=== PATIENT | female | born 1930 | race Two or more races ===

== ENCOUNTER 2020-10-13 09:30 | Inpatient (IN) | payer MEDICARE, OTHER ==
[~2020-10-13] VITALS: Ht 154.9 cm; Wt 55.3 kg
[~2020-10-13 09:30] MED LIST: ACET-2605 PO; ALEN70TA80 PO; ASPI-1169 PO; CHOL10002 PO; DONE5TAB34 PO; METF-881 PO; PRAV40TA3 PO; SERT50TA PO
--- NOTE | 2020-10-13 09:39 | NUR ---
PANDA BLUNT, UNWITNESSED FALL, FOUND IN THE FLOOR W/ BACK OF HEAD LACERATION. THE PATIENT DENIES PAIN. IN ROOM AIR AND DENIES SOB. RESPIRATION REGULAR AND UNLABORED. ATTACHED TO THE MONITOR. WARM BLANKET PROVIDED FOR COMFORT. WILL CONTINUE TO MONITOR THE PATIENT.
[2020-10-13] MEDS ORDERED: IV NS 0.9% 500 ML BAG IV ONE (10:00)
[2020-10-13 10:05] LABS: BASOPHILS # (AUTO) 0.1 /CMM (0.0-0.2); BASOPHILS % (AUTO) 0.6 % (0.0-2.0); EOSINOPHILS % (AUTO) 1.4 % (0.0-6.0); HEMATOCRIT 34 % (33-45); HEMOGLOBIN 11.2 g/dL (11.5-14.8); LYMPHOCYTES # (AUTO) 2.2 /CMM (0.8-4.8); LYMPHOCYTES % (AUTO) 20.8 % (20.0-44.0); MEAN CORPUSCULAR HGB CONC 33 g/dl (31.0-36.0); MEAN CORPUSCULAR VOLUME 93 fL (82-100); MONOCYTES # (AUTO) 0.8 /CMM (0.1-1.30); MONOCYTES % (AUTO) 7.9 % (2.0-12.0); NEUTROPHILS # (AUTO) 7.3 /CMM (1.8-8.9); NEUTROPHILS % (AUTO) 69.3 % (43.0-81.0); PLATELET COUNT (AUTO) 303 /CMM (150-450); RED BLOOD CELL COUNT(AUTO) 3.64 MIL/uL (4.0-5.2); WHITE BLOOD COUNT (AUTO) 10.5 K/uL (4.3-11.0)
--- NOTE | 2020-10-13 10:05 | NUR ---
iv line established, blood drawn and sent to lab.
[2020-10-13 10:13] LABS: CALCIUM, SERUM 9.4 mg/dL (8.5-10.1); CARBON DIOXIDE 23 mmol/L (21-32); CHLORIDE 106 mmol/L (98-107); CREATININE 1.2 mg/dL (0.6-1.3); GLUCOSE 176 mg/dL (74-106); POTASSIUM 4.2 mmol/L (3.5-5.1); SODIUM SERUM 142 mmol/L (136-145); UREA NITROGEN, BLOOD 16 mg/dL (7-18)
[2020-10-13 10:18] LABS: ALANINE AMINOTRANSFERASE 30 U/L (12-78); ALBUMIN 3.5 g/dL (3.4-5.0); ALKALINE PHOSPHATASE 66 U/L (46-116); ASPARTATE AMINOTRANSFERASE 19 U/L (15-37); BILIRUBIN,DIRECT 0.1 mg/dL (0.0-0.2); BILIRUBIN,TOTAL 0.3 mg/dL (0.2-1.0); LIPASE 28 U/L (73-393); TOTAL PROTEIN, SERUM 7.4 g/dL (6.4-8.2)
--- NOTE | 2020-10-13 10:19 | NUR ---
patient is in CT
--- NOTE | 2020-10-13 10:34 | NUR ---
urine collected and sent to the lab
[2020-10-13 10:40] LABS: BILIRUBIN,URINE Negative (NEGATIVE); COLOR,URINE YELLOW (YELLOW); LEUKOCYTE ESTERASE ,URINE Small (NEGATIVE); NITRITE, URINE Positive (NEGATIVE); PH,URINE 5.5 (5.0-8.0); PROTEIN,URINE Negative (NEGATIVE); UGLUCOSE Negative (NEGATIVE); UROBILINOGEN,URINE 0.2 EU/dL (0.2)
[2020-10-13 10:41] LABS: BACTERIA,URINE Few /HPF (None Seen); SQUAMOUS EPITHELIAL CELL,UR Few /HPF (None Seen)
[2020-10-13] MEDS ORDERED: CEFTRIAXONE 1GM BAG (ER ONLY) 1 GM/50 ML PIGGYBACK IV ONE (11:00)
--- NOTE | 2020-10-13 11:05 | NUR ---
covid swab done and sent to the lab
[2020-10-13] MEDS ORDERED: CYAN-24 PO (11:06)
[2020-10-13] MEDS ORDERED: METF-440 PO (11:06)
[2020-10-13] MEDS ORDERED: BENA20TA9 PO (11:06)
[2020-10-13] MEDS ORDERED: OMEP40CA21 PO (11:06)
[2020-10-13] MEDS ORDERED: CALC1TAB30 PO (11:06)
[2020-10-13] MEDS ORDERED: SITA50TA PO (11:06)
[2020-10-13] MEDS ORDERED: CEFTRIAXONE 1 G in IV D5W 50 ML IV ONE (11:30)
--- NOTE | 2020-10-13 11:44 | NUR ---
BED 105
--- NOTE | 2020-10-13 11:50 | NUR ---
Report given to nurse Greenfield
--- NOTE | 2020-10-13 13:41 | NUR ---
RN NOTES RECEIVED PATIENT ON [place] , IN BED RESTING, MADE NEEDS KNOWN SHE NEEDED TO USE THE BATH ROOM , STEAM BOX OPERATOR HELPED HER TO BATH ROOM, VOID 100ML YELLOW CLEAR NO FOUL ODOR NOTED, HELPED BACK TO BED, ALL SAFETY MEASURES INTACT BED LOW TO FLOOR AND CALL LIGHT IN POSITION, WILL CONTINUE TO MONITOR , ADMITTED FOR UNWITNESSED FALL AND LACERATION TO BACK OF HEAD
--- NOTE | 2020-10-13 18:07 | NUR ---
RN NOTES NEW ORDERS BEING INPUT TO eMAR , ORDER OF BLADDER SCAN IF GREATER THAN 500ML STRAIGHT CATH, READING IS LESS THAN 300 THEREFORE NO STRAIGHT CATH AT THIS TIME, WILL MONITOR BRIEF AND AMOUNT OF VOIDS, ONE ON ONE SITTER AT THIS TIME TO MONITOR FOR SAFETY ISSUES APPROVAL TO ENSURE AND PREVENT ANY FURTHER FALLS PT IS ACTIVE AND GETS UP ON OWN TO AMBULATE IN HALLWAYS AND TO BATH ROOM ON OWN, PT WILL BE ONE ASSIST ONLY AT THIS TIME FOR SAFETY, COMFORT MEASURES IN PLACE.
[2020-10-13 20:00] VITALS: BP 120/75
--- NOTE | 2020-10-13 20:00 | NUR ---
RN NOTE RECEIVED PT IN BED, ALERT, [place]UR[place] SPEAKING. ON TELE MONITOR, SHOWS SINUS RHYTHM WITH HR OF 85. NOT IN ANY DISTRESS. IV ON RAC 20G. FLUSHES WELL. PT TRYING TO GET OUT FROM BED. SITTER AT BEDSIDE. WILL CLOSELY MONITOR. ALL SAFETY MEASURES IMPLEMENTED PER PROTOCOL, CALL LIGHT WITHIN REACH, BED LOCKED IN LOWEST POSITION. WILL CONTINUE TO MONITOR.
--- NOTE | 2020-10-13 20:30 | NUR ---
2030 CRITICAL LACTIC ACID 4.[address] MCDONALD WITH ORDERS MADE. ORDERS NOTED AND CARRIED OUT.
[2020-10-13] MEDS ORDERED: ENOXAPARIN SODIUM 40 MG/0.4 ML DISP.SYRIN SQ SCH (21:00)
[2020-10-13] MEDS: IV NS 0.9% 1,000 ML IV SCH (21:14)
[2020-10-13] MEDS: ATORVASTATIN 10 MG TABLET PO SCH (21:14)
[2020-10-13] MEDS: ACETAMINOPHEN 325 MG TABLET PO PRN (21:14)
[2020-10-13] MEDS: ENOXAPARIN SODIUM 30 MG/0.3 ML DISP.SYRIN SQ SCH (21:18)
[2020-10-14] VITALS: BP 124/76
[2020-10-14 04:00] VITALS: BP 150/62
[2020-10-14 06:29] LABS: BASOPHILS % (AUTO) 0.5 % (0.0-2.0); EOSINOPHILS % (AUTO) 3.2 % (0.0-6.0); HEMATOCRIT 31 % (33-45); HEMOGLOBIN 10.4 g/dL (11.5-14.8); LYMPHOCYTES # (AUTO) 1.8 /CMM (0.8-4.8); LYMPHOCYTES % (AUTO) 24.8 % (20.0-44.0); MEAN CORPUSCULAR HGB CONC 33 g/dl (31.0-36.0); MEAN CORPUSCULAR VOLUME 93 fL (82-100); MONOCYTES # (AUTO) 0.9 /CMM (0.1-1.30); MONOCYTES % (AUTO) 11.6 % (2.0-12.0); NEUTROPHILS # (AUTO) 4.4 /CMM (1.8-8.9); NEUTROPHILS % (AUTO) 59.9 % (43.0-81.0); PLATELET COUNT (AUTO) 307 /CMM (150-450); RED BLOOD CELL COUNT(AUTO) 3.35 MIL/uL (4.0-5.2); WHITE BLOOD COUNT (AUTO) 7.4 K/uL (4.3-11.0)
--- NOTE | 2020-10-14 06:55 | NUR ---
RN CLOSING NOTE PT REMAIN IN BED, SITTER AT BEDSIDE. ASSISTED TO RESTROOM ABOUT 6 TIMES. PT CONTINUE ON IV FLUIDS OF NS, AT 75ML.HR. NO SIGNS OF INFILTRATION NOTED. AFEBRILE. LACTIC ACID TRENDS DOWN TO 2.3. PT WITH LACERATION ON BACK HEAD. NO BLEEDING NO SIGNS OF INFECTION NOTED. ALL SAFETY MEASURES MAINTAINED. WILL ENDORSE TO NEXT SHIFT NURSE FOR [facility].
[2020-10-14 08:00] VITALS: BP 144/60
[2020-10-14] MEDS: METFORMIN 500 MG TABLET PO SCH ×2 (08:55→18:16)
[2020-10-14] MEDS: IV NS 0.9% 1,000 ML IV SCH (10:23)
[2020-10-14 12:00] VITALS: BP 152/78
--- NOTE | 2020-10-14 13:12 | NUR ---
SPOKE TO MD REGARDING MED RECON AND PER MD NO NEW MEDICATIONS AND TO CONTINUE THE MEDICATIONS ORDERED.
[2020-10-14 16:00] VITALS: BP 148/80
--- NOTE | 2020-10-14 16:00 | NUR ---
Patient noted with iv site reddened and warm to touch. Mulitple attempts tried by staff to no avail. Called Dr Spann and per Dr Spann no midline and to d/c IV fluids and monitor.
--- NOTE | 2020-10-14 19:00 | NUR ---
RN NOTE RECEIVED PATIENT IN BED, CONFUSED, IN NO S/SX OF ACUTE DISTRESS AT THIS TIME. BREATHING IS EVEN AND UNLABORED, SATURATION AT 98% ON ROOM AIR, HR IS 84. NOTED IV LINE AT RAC 20G LEAKING, PER MITCH RN, NO LUCK AFTER MULTIPLE ATTEMPTS TO INSERT IV LINE, WAS NOTIFIED AND DOES NOT WANT MIDLINE INSERTED, IV FLUID WAS DISCONTINUED. NOTED BILATERAL SOFT WRIST RESTRAINTS, PER AM RN, DR SANDOVAL WANTS RESTRAINTS ONLY FOR TONIGHT, AND WILL NEED A SITTER IN AM. SAFETY MEASURES IMPLEMENTED. PATIENT BED ALARM IS ON. HEAD OF BED ELEVATED. BED IS LOCKED, IN LOWEST POSITION AND SIDE RAILS UP. CALL LIGHT WITHIN REACH OF THE PATIENT. WILL CONTINUE TO MONITOR AND REASSESS FOR ANY CHANGES.
--- NOTE | 2020-10-14 19:45 | NUR ---
RN CLOSING NOTES Patient is alert and oriented with forgetfulness. Patient is breathing even and unlabored. Sitter noted at bedside, no iv access at this time. Patient assisted to toilet x6 during shift. Endorsed to next shift that per MD to d/c restraints in am. Bed is in lowest and locked position. Call light with in reach.
[2020-10-14 20:00] VITALS: BP 166/85
--- NOTE | 2020-10-14 20:30 | NUR ---
RN NOTE NOTED BP 166/85 AT 1999, REPOSITIONED PATIENT, BED BATH DONE. PLACED WARM BLANKET ON PATIENT, PATIENT FELL ASLEEP AFTER. BP WAS RECHECKED AND REVEALED 144/78. WILL CONTINUE TO MONITOR.
[2020-10-14] MEDS: ENOXAPARIN SODIUM 30 MG/0.3 ML DISP.SYRIN SQ SCH (21:05)
[2020-10-14] MEDS: ATORVASTATIN 10 MG TABLET PO SCH (22:00)
[2020-10-15] VITALS: BP 156/65
[2020-10-15 04:00] VITALS: BP 157/72
[2020-10-15 08:00] VITALS: BP 132/67
--- NOTE | 2020-10-15 08:00 | NUR ---
RN Note: Pt received asleep, easily arousal, AXOX2. No breathing discomfort noted. No s/s of distress. SR on tele monitor. Safety measures observed. Sitter at bedside. Safety measures observed. Continue to monitor. Addendum: 10/15/20 at 1829 by LUIS BILLY RN Left head skin laceration unable to measures due to hair stick on with dry blood, pt refused to clean site properly. No active bleeding. Per report from night RN, Dr. Spann is aware of it. Will continue to monitor.
[2020-10-15] MEDS: METFORMIN 500 MG TABLET PO SCH ×2 (08:24→17:26)
[2020-10-15] MEDS: ACETAMINOPHEN 325 MG TABLET PO PRN (11:56)
[2020-10-15 12:00] VITALS: BP 138/68
[2020-10-15 16:00] VITALS: BP 143/70
--- NOTE | 2020-10-15 18:29 | NUR ---
RN Note: Pt remains stable during shift. No significant changes noted during shift. Continue with sitter at bedside for safety.
[2020-10-15 20:00] VITALS: BP 153/66
[2020-10-15] MEDS: ENOXAPARIN SODIUM 30 MG/0.3 ML DISP.SYRIN SQ SCH (21:41)
[2020-10-15] MEDS: ATORVASTATIN 10 MG TABLET PO SCH (21:42)
[2020-10-16] VITALS: BP 99/36
--- NOTE | 2020-10-16 02:53 | NUR ---
RN notes Received patient in bed, resting comfortably in bed. No distress noted, breathing even and unlabored. On room air tolerating well. Alert and oriented x 2-3, kiswahili speaking with understanding of little [place]. Sitter at bedside. No complaint of pain or discomfort. Ambulatory with assist, with bathroom privileges. No significant change of condition. Kept clean and dry. Will endorse to next shift for continuity of care.
[2020-10-16 04:00] VITALS: BP 98/47
[2020-10-16 08:00] VITALS: BP 108/48
[2020-10-16] MEDS: METFORMIN 500 MG TABLET PO SCH ×2 (08:48→17:21)
[2020-10-16 12:00] VITALS: BP 106/52
[2020-10-16 16:36] VITALS: BP 108/52
[2020-10-16 20:00] VITALS: BP 143/68
--- NOTE | 2020-10-16 20:03 | NUR ---
RN NOTE PATIENT IN BED RESTING, AWAKE AND RESPONSIVE. ON ROOM AIR, NO SIGNS OF RESPIRATORY DISTRESS. DENIES ANY PAIN AT THIS TIME. SITTER @ BEDSIDE. WITH RIGHT FOREARM #24 PATENT AND INTACT. BED LOCKED AND IN LOWEST POSITION. CALL LIGHT WITHIN REACH. ALL NEEDS ANTICIPATED.
[2020-10-16] MEDS: ENOXAPARIN SODIUM 30 MG/0.3 ML DISP.SYRIN SQ SCH (21:04)
[2020-10-16] MEDS: ATORVASTATIN 10 MG TABLET PO SCH (21:04)
--- NOTE | 2020-10-16 22:44 | NUR ---
PATIENT NOTED WITH COFFEE GROUND EMESIS X1. VITALS CHECKED. BP 153/66, HR 100, R 20, TEMP- 100.1, O2 SAT 95% ON ROOM AIR. PAGED DR. MCDONALD X2. LEFT MESSAGE. WAITING FOR CALL BACK. KEPT PATIENT CLEAN AND DRY. COOLING MEASURES PROVIDED.
--- NOTE | 2020-10-16 23:43 | NUR ---
PAGED DR. MCDONALD WITH NO REPLY BACK. PATIENT REMAINS CALM AND RESTING COMFORTABLY. NO EPISODES OF COFFEE GROUND EMESIS. VITAL SIGNS STABLE. SUDARSHAN NURSING SUPERVISOR DIE CASTING AWARE. WILL WAIT FOR CALL BACK FROM MD FOR ANY NEW ORDERS.
[2020-10-17] VITALS: BP 116/59
[2020-10-17 04:00] VITALS: BP 119/64
--- NOTE | 2020-10-17 04:01 | NUR ---
DR. MCDONALD RETURNED MESSAGE WITH NEW ORDERS NOTED AND CARRIED OUT. NO NEW EPISODES OF COFFEE GROUND EMESIS. KEPT CLEAN AND COMFORTABLE. CALL LIGHT WITHIN REACH.
[2020-10-17] MEDS: PANTOPRAZOLE 40 MG VIAL IV SCH (04:29)
[2020-10-17 06:35] LABS: BASOPHILS # (AUTO) 0.1 /CMM (0.0-0.2); BASOPHILS % (AUTO) 0.6 % (0.0-2.0); EOSINOPHILS % (AUTO) 2.8 % (0.0-6.0); HEMATOCRIT 31 % (33-45); HEMOGLOBIN 10.4 g/dL (11.5-14.8); LYMPHOCYTES # (AUTO) 2.8 /CMM (0.8-4.8); LYMPHOCYTES % (AUTO) 29.9 % (20.0-44.0); MEAN CORPUSCULAR HGB CONC 34 g/dl (31.0-36.0); MEAN CORPUSCULAR VOLUME 92 fL (82-100); MONOCYTES # (AUTO) 1.1 /CMM (0.1-1.30); MONOCYTES % (AUTO) 11.5 % (2.0-12.0); NEUTROPHILS # (AUTO) 5.1 /CMM (1.8-8.9); NEUTROPHILS % (AUTO) 55.2 % (43.0-81.0); PLATELET COUNT (AUTO) 293 /CMM (150-450); RED BLOOD CELL COUNT(AUTO) 3.32 MIL/uL (4.0-5.2); WHITE BLOOD COUNT (AUTO) 9.2 K/uL (4.3-11.0)
[2020-10-17 07:00] LABS: CALCIUM, SERUM 8.7 mg/dL (8.5-10.1); CREATININE 1.1 mg/dL (0.6-1.3); POTASSIUM 3.7 mmol/L (3.5-5.1)
--- NOTE | 2020-10-17 07:32 | NUR ---
RN NOTE PATIENT AWAKE AND RESPONSIVE. ON ROOM AIR, NO SIGNS OF RESPIRATORY DISTRESS. DENIES ANY PAIN AT THIS TIME. SITTER @ BEDSIDE. WITH LEFT FOREARM #24 PATENT AND INTACT. NO SIGNIFICANT CHANGES DURING THIS SHIFT. BED LOCKED AND IN LOWEST POSITION. CALL LIGHT WITHIN REACH. WILL ENDORSE TO AM SHIFT.
--- NOTE | 2020-10-17 07:45 | NUR ---
RN NOTE PATIENT IS IN BED WITH HOB AT SEMI FOWLERS POSITION. PATIENT IS ON ROOM AIR WITH NO SIGNS OF LABORED BREATHING. PATIENT IS AOX1. LFA #24 IS PATENT AND INTACT. BED IS LOCKED IN THE LOWEST POSITION, 3 GUARD RAILS RAISED, CALL ORDONEZ WITHIN REACH, AND ALL HOSPITAL SAFETY PRECAUTIONS ARE BEING FOLLOWED. WILL CONTINUE TO MONITOR THROUGHOUT SHIFT.
[2020-10-17 08:00] VITALS: BP 125/59
[2020-10-17] MEDS: METFORMIN 500 MG TABLET PO SCH ×2 (08:58→16:18)
[2020-10-17 12:00] VITALS: BP 127/66
[2020-10-17 16:00] VITALS: BP 136/67
--- NOTE | 2020-10-17 18:40 | NUR ---
RN NOTE PATIENT IS IN BED WITH HOB AT SEMI FOWLERS POSITION. PATIENT IS ON ROOM AIR WITH NO SIGNS OF LABORED BREATHING. PATIENT IS AOX1. LFA #24 IS PATENT AND INTACT. BED IS LOCKED IN THE LOWEST POSITION, 3 GUARD RAILS RAISED, CALL ORDONEZ WITHIN REACH, AND ALL HOSPITAL SAFETY PRECAUTIONS ARE BEING FOLLOWED. ALL DUE MEDS GIVEN AND PATIENT REMAINED STABLE THROUGHOUT SHIFT. WILL ENDORSE TO DRAMATIC CRITIC RN.
[2020-10-17 20:00] VITALS: BP 138/67
[2020-10-17] MEDS: ATORVASTATIN 10 MG TABLET PO SCH (21:05)
[2020-10-18] VITALS: BP 122/61
[2020-10-18 04:00] VITALS: BP 139/62
--- NOTE | 2020-10-18 04:30 | NUR ---
RN NOTES, REMAINED DR TAMARA ESCOBAR THAT PATIENT WILL HAVE EGD THIS MORNING AND IF HE WANTS LABS FOR THIS MORNING SINCE THERE'S NO ORDERS, AND HE REPLIED [facility] THERE'S NO NECESSITY, THAT PATIENT HAD LABS YESTERDAY.
[2020-10-18] MEDS ORDERED: ANESTHESIA TRAY IN PYXIS 1 EA TRAY MC ONE (05:27)
--- NOTE | 2020-10-18 05:40 | NUR ---
RN NOTES, PATIENT TAKEN TO OPERATION ROOM FOR EGD PROCEDURE AT THIS TIME, VITAL SIGNS STABLE.
--- NOTE | 2020-10-18 06:56 | NUR ---
RN NOTES, RECEIVED PATIENT FROM OPERATION ROOM COMING FROM EGD PROCEDURE ATR THIS TIME WITH VS 113/52, 72, 96% AT 2LPM, A/O X2, DENIES PATIENT/N/V, WITH ORDERS TO RESUME PREVIOUS DIET AND MEDICATIONS, NOTED AND CARRIED OUT, WILL ENDORSE CONTINUITY OF CARE TO ONCOMING NURSE.
[2020-10-18 08:00] VITALS: BP 113/58
[2020-10-18] MEDS: PANTOPRAZOLE 40 MG VIAL IV SCH (08:13)
[2020-10-18] MEDS: METFORMIN 500 MG TABLET PO SCH (08:13)
--- NOTE | 2020-10-18 11:23 | NUR ---
RN NOTE OKAY TO CONTACT EARNE[facility]LE PER SISTER JEWEL.
--- NOTE | 2020-10-18 11:29 | NUR ---
RN NOTE PATIENT REMOVED LFA IV ACCESS.
[2020-10-18 12:00] VITALS: BP 107/45
--- NOTE | 2020-10-18 12:30 | NUR ---
RN NOTE REPORT GIVEN TO MONTEZ BLANK AT THE [facility] FOR [facility]. 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
--- NOTE | 2020-10-18 13:55 | NUR ---
RN NOTE PATIENT HAS BEEN DC'D WITH EMT FOR [facility]. Addendum: 10/18/20 at 1604 by DEANNE KEE RN AT 1427
[2020-10-18] MEDS ORDERED: GLUCERNA SHAKE 237 ML CAN PO SCH (17:00)
== END 2020-10-18 17:36 | DRG 312 ==
LOC: ER 09:30 → TELE1 12:27
PROVIDERS: ADMIT Internal Medicine; ATTEND Internal Medicine
PROC: 0DB68ZX Excision of Stomach, Via Natural or Artificial Opening Endoscopic, Diagnostic (ICD-10-PCS; principal; 2020-10-18)
DX: I95.1 Orthostatic hypotension (principal); F03.90 Unspecified dementia, unspecified severity, without behavioral disturbance, psychotic disturbance, mood disturbance, and anxiety; E11.9 Type 2 diabetes mellitus without complications; I10 Essential (primary) hypertension; Z79.82 Long term (current) use of aspirin; I25.10 Atherosclerotic heart disease of native coronary artery without angina pectoris; W19.XXXA Unspecified fall, initial encounter; Y92.89 Other specified places as the place of occurrence of the external cause; Z20.822 Contact with and (suspected) exposure to COVID-19; F41.9 Anxiety disorder, unspecified; Z79.84 Long term (current) use of oral hypoglycemic drugs; Z79.83 Long term (current) use of bisphosphonates; Z79.899 Other long term (current) drug therapy; K29.70 Gastritis, unspecified, without bleeding; K44.9 Diaphragmatic hernia without obstruction or gangrene; S01.01XA Laceration without foreign body of scalp, initial encounter; Z87.01 Personal history of pneumonia (recurrent); Z86.16 Personal history of COVID-19; M81.0 Age-related osteoporosis without current pathological fracture; M19.90 Unspecified osteoarthritis, unspecified site; H91.90 Unspecified hearing loss, unspecified ear; R26.89 Other abnormalities of gait and mobility
CPT/HCPCS: 36415; 70450-TC; 71045-TC; 72125-TC; 72170-TC; 80048-TC; 80076-TC; 81001; 83605-TC; 83690-TC; 83880; 84484-TC; 85025-TC; 85378-TC; 87081-TC; 87086-TC; 87186-TC; 88305-TC; 88313-TC; 88342; 93307-TC; 97112-TC; 97116-TC; 97530-TC; C9113; C9803; G0378; J0696; J1650; J2704; J7030; J7040